=== PATIENT | female | born 1995 | race Two or more races ===

== ENCOUNTER 2018-03-11 20:08 | Emergency (ER) | payer SELFPAY ==
[~2018-03-11] VITALS: Ht 167.6 cm; Wt 72.6 kg
[2018-03-11 20:16] VITALS: BP 121/74
--- NOTE | 2018-03-11 20:29 | PHYS DOC ---
Adult General Chief Complaint Chief Complaint: NAUSEA/VOMITING/DIARRHA HPI HPI Patient is a 22 year old female who presents with nausea and vomiting. Patient complains that she has been nauseated over the last 3 days. Today, she had 2 episodes of emesis. Over the course of the symptoms, she has been able to eat and hold down some fluids. Her last menstrual cycle was around 5 or 6 weeks ago, she cannot remember. She does not have abdominal pain. She denies urinary symptoms. She does not have pelvic pain. No epigastric or right upper quadrant pain. She does not have a prior history of surgeries. No additional family members have been ill. The patient does not have chronic health conditions. No fever. Review of Systems Review of Systems Constitutional: Denies fever Eyes: Denies change in visual acuity HENT: Denies nasal congestion Respiratory: Denies cough Cardiovascular: No additional information GI: Denies abdominal pain, nausea : Denies dysuria Musculoskeletal: Denies back pain Integument: Denies rash Neurologic: Denies headache All other systems were reviewed and found to be within normal limits, except as documented in this note. Current Medications Current Medications Current Medications Medications (Trade) Dose Ordered Sig/Terra Start Time Stop Time Status Last Admin Dose Admin Diphenhydramine HCl (Benadryl) 12.5 mg 1X ONCE 03/11/18 21:00 03/11/18 21:01 DC 03/11/18 21:00 12.5 MG Metoclopramide HCl (Reglan Vial) 10 mg 1X ONCE 03/11/18 21:00 03/11/18 21:01 DC 03/11/18 21:00 10 MG Sodium Chloride 1,000 ml @ 1,000 mls/hr 1X ONCE 03/11/18 20:30 03/11/18 21:29 DC 03/11/18 20:30 1,000 MLS/HR Allergies Allergies Allergies Coded Allergies Type Severity Reaction Last Updated Verified No Known Drug Allergies 03/11/18 No Physical Exam Physical Exam Constitutional: Well developed, well nourished, no acute distress, non-toxic appearance HENT: Normocephalic, atraumatic, bilateral external ears normal, oropharynx moist Eyes: PERRLA, EOMI, conjunctiva normal Neck: Normal range of motion, no tenderness Cardiovascular:Heart rate regular rhythm, no murmur Lungs & Thorax: Bilateral breath sounds clear to auscultation Abdomen: Bowel sounds normal, soft, no tenderness Skin: Warm, dry, no erythema, no rash Extremities: Normal exam Neurologic: Alert and oriented X 3 Psychologic: Affect normal Current Patient Data Vital Signs Vital Signs Date Time Temp Pulse Resp B/P (MAP) Pulse Ox O2 Delivery O2 Flow Rate FiO2 03/11/18 20:16 98.4 80 18 121/74 (90) 99 Room Air 98.4 Lab Values Laboratory Tests Test 03/11/18 20:32 03/11/18 20:36 Urine Collection Type Unknown Urine Color Yellow Urine Clarity Clear Urine pH 8.0 Urine Specific [place] 1.020 Urine Protein Negative mg/dL (NEG-TRACE) Urine Glucose (UA) Negative mg/dL (NEG) Urine Ketones (Stick) Negative mg/dL (NEG) Urine Blood Negative (NEG) Urine Nitrite Negative (NEG) Urine Bilirubin Negative (NEG) Urine Urobilinogen Dipstick 0.2 mg/dL (0.2 mg/dL) Urine Leukocyte Esterase Moderate (NEG) Urine RBC 0 /HPF (0-2) Urine WBC 11-20 /HPF (0-4) Urine Squamous Epithelial Cells Mod /LPF Urine Bacteria Many /HPF (0-FEW) Urine Mucus Slight /LPF POC Urine HCG, Qualitative Hcg positive (Negative) EKG EKG [] Radiology/Procedures Radiology/Procedures [] Course & Med Decision Making Course & Med Decision Making Pertinent Labs and Imaging studies reviewed. (See chart for details) 20:20: Patient is seen and examined. No distress. Well-hydrated with normal vitals. Normal abdominal examination with no tenderness. UA/UCG ordered. Meds ordered for symptom control. 21:40: All results are reviewed and discussed with the patient. Patient does have some pyuria although she has no symptoms. Her test is positive which is new. She was not aware of . Gonorrhea and chlamydia are added to her urine. She has no vaginal complaints this evening. Plan is for discharge home. She is placed on Macrobid. She is also placed on vitamins. She is referred to follow-up with the OB physician on-call this evening. All of her questions are answered prior to discharge and she is agreeable to the plan of care. Dragon Disclaimer Dragon Disclaimer This electronic medical record was generated, in whole or in part, using a voice recognition dictation system. Departure Departure Referrals: NO PCP (PCP) Scripts Vits W-Ca,Fe,Fa(<1MG) ( VITAMINS) 1 Each Tablet 1 TAB PO DAILY, #90 TAB 3 Refills Prov: PATI IVY DO 03/11/18 Nitrofurantoin Monohyd/M-Cryst (MACROBID 100 MG CAPSULE) 100 Mg Capsule 1 CAP PO BID, #14 CAP Prov: PATI IVY DO 03/11/18 PATI IVY DO Mar 11, 2018 20:29
[2018-03-11] MEDS ORDERED: IV NORMAL SALINE 1000ML BAG 1,000 ML IV ONE (20:30)
[2018-03-11 20:46] LABS: BILIRUBIN,URINE NEGATIVE (NEG); CLARITY,URINE CLEAR; COLOR,URINE YELLOW; NITRITE,URINE NEGATIVE (NEG); PROTEIN,URINE NEGATIVE (NEG-TRACE); UROBILINOGEN,URINE 0.2 mg/dL (0.2 mg/dL)
[2018-03-11 20:59] LABS: BACTERIA,URINE MANY /HPF (0-FEW); RBC,URINE 0 /HPF (0-2); SQUAMOUS EPITHELIAL CELL,UR MOD /LPF
[2018-03-11] MEDS ORDERED: METOCLOPRAMIDE HCL 10 MG/2 ML VIAL. IV ONE (21:00)
[2018-03-11] MEDS ORDERED: diphenhydrAMINE 50 MG/ML VIAL IVP ONE (21:00)
[2018-03-11] MEDS ORDERED: PREN1TAB58 PO (21:33)
[2018-03-11] MEDS ORDERED: NITR100C62 PO (21:33)
== END 2018-03-11 21:46 | disposition home or self-care (01) ==
LOC: ER 20:08
DX: R11.2 Nausea with vomiting, unspecified (principal); Z33.1 Pregnant state, incidental
CPT/HCPCS: 81001; 81025; 96361; 96374; 96375; 99284; J1200; J2765; J7030